=== PATIENT | male | born 2000 | race Caucasian/White ===

== ENCOUNTER 2019-04-02 08:32 | Inpatient (IN) ==
[2019-04-02 09:17] LABS: Hematocrit (blood only) 39.2 % (42-52); Mean Corpuscular Hgb Conc 33.2 g/dL (32-36); Mean Corpuscular Volume 87.5 fL (80-100); Mean Platelet Volume 9.2 fL (7.4-10.4); Platelet Count 151 K/uL (130-400); RDW Standard Deviation 41.7 fL (36.4-46.3); Red Blood Count 4.48 M/uL (4.7-6.1); White Blood Count 13.84 K/uL (4.8-10.8)
[2019-04-02] MEDS ORDERED: SODIUM CHLORIDE 0.9% 1000ML 1,000 ML IV ONE (09:33)
[2019-04-02] MEDS ORDERED: KETOROLAC 30 MG/ML VIAL IV STA (09:33)
[2019-04-02 09:40] LABS: Albumin Level 3.8 gm/dl (3.4-5.0); BUN Creatinine Ratio 17.3 (10-20); Calcium 8.8 mg/dl (8.5-10.1); Creatinine Clr Calc Pharmacy 120.3 ml/min; Est GFR (Non-African American) 115.6; Potassium 4.2 mmol/L (3.5-5.1)
[2019-04-02 09:43] LABS: Albumin Globulin Ratio 1.1 (0.9-2); Bilirubin,Total 0.6 mg/dl (0.2-1); Globulin 3.6 gm/dl (2.5-4.0); Total Protein 7.4 gm/dl (6.4-8.2)
[2019-04-02 09:46] LABS: Basophils # (auto) 0.01 K/uL (0-0.2); Basophils % (auto) 0.1 %; Immature Granulocytes # (auto) 0.06 K/uL (0.00-0.02); Immature Granulocytes % (auto) 0.4 %; Lymphocytes # (auto) 0.82 K/uL (1.2-3.4); Lymphocytes % (auto) 5.9 %; Monocytes # (auto) 1.48 K/uL (0.11-0.59); Monocytes % (auto) 10.7 %; Neutrophils # (auto) 11.47 K/uL (1.4-6.5); Neutrophils % (auto) 82.9 %
--- NOTE | 2019-04-02 09:57 | XRay Report ---
XR chest 1V portable HISTORY: 18 years-old Male cough acute cough with fever COMPARISON: None available TECHNIQUE: Portable AP view of the chest FINDINGS: Minimal ill-defined opacities about the lateral left mid to upper lung. Additional ill-defined opacit ies are noted about the right lung base. Cardiomediastinal and hilar silhouettes are within normal li mits. There is no pneumothorax, pleural effusion or overt pulmonary edema. Bones of the chest appear grossly intact. IMPRESSION: Ill-defined opacities about the lateral left mid to upper lung and right lung base are green spicious for a multifocal pneumonitis. The above report was generated using voice recognition software. It may contain grammatical, syntax o r spelling errors. Electronically signed by: Yovani Bravo M.D. 04/02/2019 9:55 AM
[2019-04-02 10:07] LABS: C Reactive Protein 3.03 mg/dl (0-0.29); Troponin I < 0.015 ng/ml (0-0.045)
[2019-04-02] MEDS ORDERED: cefTRIAXone SODIUM 1,000 MG/50 ML BAG IV STA (10:10)
[2019-04-02 10:25] LABS: Lyme Ab IgM w/WB Rflx Negative (Negative)
[2019-04-02 10:26] LABS: Lyme Ab IgG w/WB Rflx Negative (Negative)
--- NOTE | 2019-04-02 10:27 | Emergency Department Note ---
History of Present Illness General Chief Complaint: Fever Stated Complaint: FEVER,PASSED OUT Source: patient Mode of arrival: ambulatory Limitations: no limitations History of Present Illness Provider Complaint: + loss of consciousness Onset (ago): 2 hour(s) Duration of episode: 2 -: + second(s) Prodromal symptoms: + lightheaded and + diaphoresis Witnessed: + yes - by bystander Context: + standing up Injuries sustained associated with event: + none Current symptoms: + back to baseline and + other (myalgias) History: + previous syncopal episode (8 months ago, unknown cause) Treatments prior to arrival: + none HPI narrative: This 18-year-old male patient presents emergency department today, ambulatory, accompanied by staff from [facility] with complaints of generalized body aches, fatigue, "flash fever", and one syncopal episode which occurred approximately 2 hours prior to arrival. The patient is getting ready to start [facility] and is on a long hiking trip. The patient states 2 weeks ago, he was ill with cough, congestion, chills, nausea, and headache. He began feeling better than on , 5 days ago, he developed worsening cold symptoms including body aches, subjective fevers, cough, fatigue, and mild congestion. The patient states he has been experiencing chills and muscle cramping. He had difficulty sleeping last night. This morning while getting into the van, he had a positive loss of consciousness which lasted for 2 to 3 seconds and was witnessed by bystanders. The patient states "I have muscle inflammation". He states he has had a nonproductive cough for the past few days, but really has had it for about 2 weeks. He does report some upper abdominal discomfort which she rates 1/10. He has some nausea with the loss of consciousness, but this is resolved now. He denies any bug bites or tick bites. He denies any history of Lyme disease. The patient does report low back pain in addition to the other generalized body aches. He has not been taking any medications for his symptoms. He is currently on multiple OTC vitamins and supplements, but no prescription medications. He reports a history 8 months ago of a syncopal episode associated with a "flash fever" which he describes as a subjective fever that lasts for a day then goes away. He states the previous syncopal episode was never worked up and no diagnosis or cause made. Of note, the patient has been taking several OTC supplements for the past several months. Home Medicaitons Home Medications Medication Instructions Recorded Confirmed Type No Known Home Medications 04/02/19 04/02/19 History albuterol sulfate 2 puffs INH Q6H PRN #6.7 gm 04/03/19 Rx levofloxacin 750 mg PO DAILY #3 tab 04/03/19 Rx Allergies Allergy/AdvReac Type Severity Reaction Status Date / Time Penicillins Allergy Rash Unverified 04/02/19 09:50 Past Med/Surg History Medical History No pertinent past medical history Social History Preferred Language: Luxembourgish Communication Ability: Effective Field Clinical Engineer Required: No Beliefs That Will Affect Care: None Current Living Situation: Other Current Living Situation Comment: dorm room alone for now Other Information That Helps Us Care for You: No Feels Safe at Home: Yes Safety Concerns: Feels Safe At This Time Smoking Status: Never smoker Do You Dip or Chew Tobacco: No ; Second Hand Exposure: No ; Tobacco Cessation Education Requested by Patient: No Hx Alcohol Use: No Hx Substance Use: No Review of Systems A total of 10 systems reviewed and were otherwise negative Physical Exam Vital Signs: Vital Signs - 24 hr 04/02/19 08:38 04/02/19 09:51 04/02/19 09:55 Temperature 37.0 C Temperature Source Oral Sepsis Recent Feve r Within 48 Hours No Sepsis Action Take n by Nursing No Action Required Pulse Rate 80 68 70 Pulse Rate from Sp O2 Sensor 67 70 Pulse Rhythm Regular Pulse Strength Normal Respiratory Rate 18 18 18 Respiratory Effort / Characteristics Non-Labored Respiratory Depth Normal Respiratory Patter n Regular Blood Pressure 114/65 109/48 L Blood Pressure Rita n 81 68 Blood Pressure Pos ition Sitting Pulse Oximetry 99 100 100 Oxygen Delivery Me thod Room Air 04/02/19 10:00 04/02/19 10:30 04/02/19 11:00 Temperature Temperature Source Sepsis Recent Feve r Within 48 Hours Sepsis Action Take n by Nursing Pulse Rate 72 72 75 Pulse Rate from Sp O2 Sensor 70 71 73 Pulse Rhythm Pulse Strength Respiratory Rate 14 16 13 Respiratory Effort / Characteristics Respiratory Depth Respiratory Patter n Blood Pressure 119/62 106/71 113/62 Blood Pressure Rita n 81 82 79 Blood Pressure Pos ition Pulse Oximetry 100 97 99 Oxygen Delivery Me thod Physical Exam: VITALS: Vitals are noted on the nurse's note and reviewed by myself. Vital signs stable. GENERAL: This is a 18-year-old white male, in no acute distress, nondiaphoretic, well-developed well-nourished. SKIN: The skin was without rashes, erythema, edema, or bruising. There is no tenting of the skin. Capillary reflex less than 2 seconds. HEAD: Normocephalic atraumatic. EARS: External auditory canals clear, tympanic membranes pearly mcneal without alfonso thema or effusion bilaterally. EYES: Pupils equal round and reactive to light and accommodation. Conjunctivae without injection, sclerae without icterus. Extraocular movements intact. NOSE: Patent, turbinates without inflammation or discharge. No sinus tenderness. MOUTH: Mucous membranes moist. Tonsils are not enlarged. Pharynx without erythema or exudate. Uvula midline. Airway patent. Tongue does not deviate. NECK: Supple without nuchal rigidity. No lymphadenopathy. No thyromegaly. Cervical spine is nontender. No JVD. HEART: Regular rate and rhythm without murmurs gallops or rubs. LUNGS: Crackles noted in the right lung henry. The lungs were otherwise clear to auscultation bilaterally without wheezes, rales or rhonchi. No dullness to percussion. No retractions or accessory muscle use. ABDOMEN: Positive bowel sounds x 4. Normal tympanic percussion. Soft, nontender, without masses or organomegaly. Vargas sign negative. No guarding or rebound tenderness. MUSCULOSKELETAL: No muscle atrophy, erythema, or edema noted. Full range of motion without joint tenderness in all extremities. No tenderness to palpation. Normal gait. Strength 5/5 throughout. NEURO: Patient was alert and oriented to person place and time. Normal sensation to light and sharp touch. Deep tendon reflexes 2+ throughout. No focal neurological deficits. Course The patient was seen and evaluated as above. IV access obtained, labs drawn. Patient hydrated with IV fluids. Imaging performed and reviewed by myself and radiologist as above. Labs reviewed by myself. I discussed the findings with the patient at bedside. I attempted to contact the patient's mother, Theresa, at [phone]. Left message and advised her to call back, but did not receive a phone call back. The patient did get in contact with his mother and spoke with her while here in the department. I discussed the case with the [facility] Hospitalist, Dalia Choe PA-C. She did agree to see and evaluate the patient. The patient was given IV Rocephin and doxy. I discussed the case with my attending. The patient was admitted to the hospitalist service. Please see their dictation regarding ongoing management care of this patient. Administered Medications Discontinued Medications Guaifenesin (Mucinex) 600 mg PO Q12 SHELLY Stop: 05/02/19 20:59 Last Admin: 04/03/19 10:02 Dose: 600 mg Documented by: [id number] Admin: 04/02/19 20:04 Dose: 600 mg Documented by: [id number] Sodium Chloride (Nss 1000ml) 1,000 mls @ 999 mls/hr IV .Q1H1M ONE Stop: 04/02/19 10:33 Last Infusion: 04/02/19 18:00 Dose: 0 mls/hr Documented by: [id number] Admin: 04/02/19 09:58 Dose: 999 mls/hr Documented by: [id number] Ceftriaxone Sodium (Rocephin) 1,000 mg in 50 mls @ 100 mls/hr IV NOW STA Stop: 04/02/19 10:39 Last Infusion: 04/02/19 18:00 Dose: 0 mls/hr Documented by: [id number] Admin: 04/02/19 10:46 Dose: 100 mls/hr Documented by: [id number] Azithromycin 500 mg/ Dextrose 255 mls @ 127.5 mls/hr IV NOW STA Stop: 04/02/19 12:33 Last Admin: 04/03/19 01:08 Dose: Not Given Documented by: [id number] Doxycycline Hyclate 100 mg/ (Dextrose) 110 mls @ 50 mls/hr IV NOW STA Stop: 04/02/19 12:56 Last Infusion: 04/02/19 13:32 Dose: 0 mls/hr Documented by: [id number] Admin: 04/02/19 11:20 Dose: 50 mls/hr Documented by: [id number] Sodium Chloride (Nss 1000ml) 1,000 mls @ 125 mls/hr IV .Q8H SHELLY Stop: 04/03/19 12:08 Last Infusion: 04/03/19 08:25 Dose: 125 mls/hr Documented by: [id number] Infusion: 04/03/19 06:39 Dose: 0 mls/hr Documented by: [id number] Admin: 04/03/19 06:11 Dose: 125 mls/hr Documented by: [id number] Infusion: 04/03/19 06:11 Dose: 125 mls/hr Documented by: [id number] Admin: 04/02/19 22:30 Dose: 125 mls/hr Documented by: [id number] Infusion: 04/02/19 20:09 Dose: 125 mls/hr Documented by: [id number] Admin: 04/02/19 12:09 Dose: 125 mls/hr Documented by: [id number] Sodium Chloride (Nss 1000ml) 1,000 mls @ 999 mls/hr IV .Q1H1M ONE Stop: 04/03/19 07:36 Last Infusion: 04/03/19 07:45 Dose: 0 mls/hr Documented by: [id number] Admin: 04/03/19 06:40 Dose: 999 mls/hr Documented by: [id number] Ketorolac Tromethamine (Toradol) 30 mg IV NOW STA Stop: 04/02/19 09:34 Last Admin: 04/02/19 09:58 Dose: 30 mg Documented by: [id number] Levalbuterol HCl (Xopenex 1.25mg/0.5ml Neb) 1.25 mg NEB Q6H SHELLY Stop: 05/02/19 11:29 Last Admin: 04/02/19 11:39 Dose: 1.25 mg Documented by: [id number] Levalbuterol HCl (Xopenex 1.25mg/0.5ml Neb) 1.25 mg NEB Q6R SHELLY Stop: 05/02/19 18:59 Last Admin: 04/02/19 19:39 Dose: 1.25 mg Documented by: [id number] Levalbuterol HCl (Xopenex 1.25mg/3ml Neb) 1.25 mg INH Q6R SHELLY Stop: 05/02/19 19:59 Last Admin: 04/03/19 07:24 Dose: 1.25 mg Documented by: [id number] Admin: 04/03/19 01:06 Dose: Not Given Documented by: [id number] Admin: 04/02/19 21:38 Dose: Not Given Documented by: [id number] Levofloxacin (Levaquin) 750 mg PO ONE ONE Stop: 04/03/19 11:01 Last Admin: 04/03/19 11:02 Dose: 750 mg Documented by: [id number] Medical Decision Making Differential Diagnosis + syncope due to orthostatic hypotension, + vasovagal event, + complete atrioventricular block, + subarachnoid hemorrhage, + pulmonary embolism, + dehydration, + orthostasis, + POTS, + infection, + hypoglycemia, + electrolyte abnormalities, + dysrhythmias, + ACS, + intracerebral event, + toxicologic, + neurologic and + trauma In addition to the above, etiologies such as pneumonia, COPD, reactive airway disease, CHF, cardiac ischemia, pulmonary embolism, pneumothorax, musculoskeletal, infections, gastrointestinal, as well as others were entertain ed. Home Medications Current Medication List: was personally reviewed by me Laboratory Data Attestation: I reviewed the patient's lab results. Leukocytosis of 13,000 with a shift. Neutrophil count of 11,000. Very mild anemia with hemoglobin of 13 and hematocrit of 39.2. Renal, hepatic function electrolytes without significant abnormality. ESR elevated at 17. CRP elevated at 3.03. Troponin negative. Procalcitonin 2.38. TSH 2.49. Result diagrams: 04/03/19 07:08 04/03/19 07:04 Lab Results 04/02/19 04/02/19 04/02/19 Range/Units 09:05 09:05 09:05 WBC 13.84 H (4.8-10.8) K/uL RBC 4.48 L (4.7-6.1) M/uL Hgb 13.0 L (14.0-18.0) g/dL Hct 39.2 L (42-52) % MCV 87.5 (80-100) fL MCH 29.0 (25-34) pg MCHC 33.2 (32-36) g/dL RDW Std Deviation 41.7 (36.4-46.3) fL RDW Coeff of Afia 13.0 (11.5-14.5) % Plt Count 151 (130-400) K/uL MPV 9.2 (7.4-10.4) fL Immature Gran % (Auto) 0.4 % Neut % (Auto) 82.9 % Lymph % (Auto) 5.9 % Kimball % (Auto) 10.7 % Eos % (Auto) 0.0 % Baso % (Auto) 0.1 % Immature Gran # (Auto) 0.06 H (0.00-0.02) K/uL Neut # (Auto) 11.47 H (1.4-6.5) K/uL Lymph # (Auto) 0.82 L (1.2-3.4) K/uL Kimball # (Auto) 1.48 H (0.11-0.59) K/uL Eos # (Auto) 0.00 (0-0.5) K/uL Baso # (Auto) 0.01 (0-0.2) K/uL ESR (0-14) mm/hr Sodium 137 (136-145) mmol/L Potassium 4.2 (3.5-5.1) mmol/L Chloride 102 (98-107) mmol/L Carbon Dioxide 30 (21-32) mmol/L Anion Gap 5.0 (3-11) BUN 16 (7-18) mg/dl Creatinine 0.95 (0.6-1.4) mg/dl Est Cr Clr Drug Dosing 120.3 ml/min Est GFR ( Amer) 134.0 Est GFR (Non-Af Amer) 115.6 BUN/Creatinine Ratio 17.3 (10-20) Glucose 121 H (70-99) mg/dl Calcium 8.8 (8.5-10.1) mg/dl Total Bilirubin 0.6 (0.2-1) mg/dl AST 31 (15-37) U/L ALT 31 (12-78) U/L Alkaline Phosphatase 106 (45-117) U/L Troponin I (0-0.045) ng/ml C-Reactive Protein (0-0.29) mg/dl Total Protein 7.4 (6.4-8.2) gm/dl Albumin 3.8 (3.4-5.0) gm/dl Globulin 3.6 (2.5-4.0) gm/dl Albumin/Globulin Ratio 1.1 (0.9-2) Procalcitonin (0-0.5) ng/ml TSH (0.300-4.500) uIu/ml Lyme Disease IgG Ab Negative (Negative) Lyme Disease IgM Ab Negative (Negative) Monoscreen Negative (Negative) 04/02/19 04/02/19 04/02/19 Range/Units 09:05 09:05 09:05 WBC (4.8-10.8) K/uL RBC (4.7-6.1) M/uL Hgb (14.0-18.0) g/dL Hct (42-52) % MCV (80-100) fL MCH (25-34) pg MCHC (32-36) g/dL RDW Std Deviation (36.4-46.3) fL RDW Coeff of Afia (11.5-14.5) % Plt Count (130-400) K/uL MPV (7.4-10.4) fL Immature Gran % (Auto) % Neut % (Auto) % Lymph % (Auto) % Kimball % (Auto) % Eos % (Auto) % Baso % (Auto) % Immature Gran # (Auto) (0.00-0.02) K/uL Neut # (Auto) (1.4-6.5) K/uL Lymph # (Auto) (1.2-3.4) K/uL Kimball # (Auto) (0.11-0.59) K/uL Eos # (Auto) (0-0.5) K/uL Baso # (Auto) (0-0.2) K/uL ESR 17 H (0-14) mm/hr Sodium (136-145) mmol/L Potassium (3.5-5.1) mmol/L Chloride (98-107) mmol/L Carbon Dioxide (21-32) mmol/L Anion Gap (3-11) BUN (7-18) mg/dl Creatinine (0.6-1.4) mg/dl Est Cr Clr Drug Dosing ml/min Est GFR ( Amer) Est GFR (Non-Af Amer) BUN/Creatinine Ratio (10-20) Glucose (70-99) mg/dl Calcium (8.5-10.1) mg/dl Total Bilirubin (0.2-1) mg/dl AST (15-37) U/L ALT (12-78) U/L Alkaline Phosphatase (45-117) U/L Troponin I < 0.015 (0-0.045) ng/ml C-Reactive Protein 3.03 H (0-0.29) mg/dl Total Protein (6.4-8.2) gm/dl Albumin (3.4-5.0) gm/dl Globulin (2.5-4.0) gm/dl Albumin/Globulin Ratio (0.9-2) Procalcitonin 2.38 H (0-0.5) ng/ml TSH 2.490 (0.300-4.500) uIu/ml Lyme Disease IgG Ab (Negative) Lyme Disease IgM Ab (Negative) Monoscreen (Negative) Imaging Data Radiologist's Impression: XR chest 1V portable HISTORY: 18 years-old Male cough acute cough with fever COMPARISON: None available TECHNIQUE: Portable AP view of the chest FINDINGS: Minimal ill-defined opacities about the lateral left mid to upper lung. Additional ill-defined opacities are noted about the right lung base. Cardiomediastinal and hilar silhouettes are within normal limits. There is no pneumothorax, pleural effusion or overt pulmonary edema. Bones of the chest appear grossly intact. IMPRESSION: Ill-defined opacities about the lateral left mid to upper lung and right lung base are suspicious for a multifocal pneumonitis. The above report was generated using voice recognition software. It may contain grammatical, syntax or spelling errors. Electronically signed by: Yovani Bravo M.D. 04/02/2019 9:55 AM ECG Data Attestation: I personally reviewed and interpreted this ECG as follows: Indication: syncope Rate (beats per minute): 69 Rhythm: normal sinus Findings: no acute ischemic change and no ectopy Comparison ECG Date: no prior available Blood Pressure Blood Pressure Findings: Normal blood pressure MDM Narrative This 18-year-old male patient presents emergency department today with complaints of generalized body aches, cough, URI symptoms, and one syncopal episode this morning. Work-up here in the ED is consistent with multifocal pneumonia. No obvious etiology of the syncope. The patient does have a leukocytosis. He complains of subjective fevers, but no objective fever noted. He is in town for a backpacking trip for [facility] [employer]. He is a [employer] student. Given the multifocal pneumonia, I do feel that admission for IV antibiotics and hydration as well as evaluation of the syncope is the most appropriate management at this time. The patient did have a syncopal episode several months ago and did not have an obvious etiology at that time. The patient was started on Rocephin and doxy while here in the ED. He will be admitted to the hospitalist service for ongoing management. Please see their dictation regarding ongoing management care of this patient. The chart was completed utilizing [employer] Speech voice recognition software. Grammatical errors, random word insertions, pronoun errors, and incomplete sentences are an occasional consequence of this system due to software limitations, ambient noise, and hardware issues. Any formal questions or concerns about the content, text, or information contained within the body of this dictation should be directly addressed to the provider for clarification. Impression & Plan Multifocal pneumonia, Syncope and collapse, Fever Discharge Plan Visit Data *Final* Discharge Date/Time: 04/02/19 11:58 Chief Complaint: Fever Stated Complaint: FEVER,PASSED OUT ED Provider: Lucius Dewitt ED Midlevel Provider: Angelica Akhtar Discharge Problem: Multifocal pneumonia, Syncope and collapse, Fever Patient Disposition: Admitted As Inpatient Discharge Instructions Interventions: ED Discharge Assessment Last Done: 04/02/19 11:58
[2019-04-02] MEDS ORDERED: AZITHROMYCIN 500 MG in DEXTROSE 5% 250 ML IV STA (10:34)
[2019-04-02] MEDS ORDERED: DOXYCYCLINE HYCLATE 100 MG in DEXTROSE 5% 100 ML IV STA (10:45)
--- NOTE | 2019-04-02 11:11 | History & Physical Report ---
Date of Service April 02, 2019 Assessment & Plan (1) Multifocal pneumonia: (2) Fever: -Admit to [facility] with telemetry -Subjective fever, has not been documented here -White count elevated at 13.84 -Multifocal pneumonia as per CXR which is been reviewed as above -Pulmonary toilet with Mucinex, flutter, Tessalon Cathi, DuoNeb's -Patient is not requiring any supplemental oxygen, however reports being winded with physical exertion -Patient is from home, plans to transition into living in dorms next week at [facility] -Check blood cultures x2, lactate, procalitonin -Follow lymes titre with exposure - unknown if this has been ongoing for prolonged timeframe and is old Lymes -Consider pulm consult with hx of asthma (3) Syncope and collapse: - NSS at 125 x 1 day, encourage PO intake - Check 2D echo - Likely related to pneumonia but will rule out cardiac etiology - consider cardiology consult (4) DVT prophylaxis: - teds Dispo: From home, admit, likely to remain here for 2 days. History of Present Illness Primary Care Provider: [facility] This is a 18 yo M with limited PMHx with intermittent fevers over the past year but multiple exposures to viral illnesses by his family. Pt has a remote history of asthma where he use inhalers and nebulizers. He was on a camping trip with 10 other people for the past 3 days, but due to an episode of sweats, chills, rigors and passing out for a few seconds, he presented to the ER. He has been feeling more worn down, more easily fatigued and reports feeling winded with extensive physical exertion since mid last week. He reports a minor cough, which is nonproductive. Yesterday he hiked approximately 2 miles, as well as the same the day before that. Today he was supposed to hike 10 miles but the events happened prior to this. He reports having "flash fevers" where he developed sweats and chills that week which lasts for about 24 hours then resolved. He has also been using congaplex since getting a cold last . He has not used a thermometer to take his temperature at all. He denies any recent sick contacts, raw or undercooked food consumption. He has drank out of streams on the camping trip but patient reports that they sterilized the water first. No exposures to second hand smoke no alcohol use. Pt was exposed to ticks during this trip but he does not know if he has been bitten by one. He denies any rashes or new areas of injury. Patient reports that he eats a wide variety of fruits and vegetables. Patient also reports that he has been trying to combat acne with various vitamins and supplements. He has taken these routinely for about the last year. Vitamins and supplements include: oshwaganda, reishi, cortysept, zinc, B complex, Vit D. He has also been using congaplex since getting a cold last Will admit for multifocal pneumonia seen on CXR. Allergies Allergy/AdvReac Type Severity Reaction Status Date / Time Penicillins Allergy Rash Unverified 04/02/19 09:50 Home Medications Home Medications Medication Instructions Recorded Confirmed Type No Known Home Medications 04/02/19 04/02/19 History Past Med/Surg History Medical History No pertinent past medical history Social History Preferred Language: Tajik Communication Ability: Effective Chute Boss Required: No Beliefs That Will Affect Care: None Current Living Situation: Other Current Living Situation Comment: dorm room alone for now Other Information That Helps Us Care for You: No Feels Safe at Home: Yes Safety Concerns: Feels Safe At This Time Smoking Status: Never smoker Do You Dip or Chew Tobacco: No ; Second Hand Exposure: No ; Tobacco Cessation Education Requested by Patient: No Hx Alcohol Use: No Hx Substance Use: No Review of Systems Review of Systems: Constitutional: No fever, sweats or chills Eyes: No diplopia, no worsening or blurred vision ENT: normal hearing, no trouble swallowing Respiratory: No cough, sputum, dyspnea at rest or on exertion Cardiovascular: No chest pain, tightness or palpitations Abdomen: No pain, nausea, vomiting, diarrhea or constipation Musculoskeletal: No joint pain, calf pain, swelling Neurologic: No weakness, numbness/tingling, or balance problems Psychiatric: No anxiety or depression Skin: No rash or itch Physical Exam Physical Exam: General: awake, alert, no apparent distress Head: Normocephalic, atraumatic ENT: PERRL, EOMI, no pharyngeal exudate, mucous membranes moist Chest: Clear to auscultation, on room air, no adventitious breath sounds Cardiac: Regular rate and rhythm, no murmur, no JVD, normal peripheral pulses, good capillary refill Abdominal: NABS x 4 quadrants, soft, nontender to palpation, no rebound, guarding or tenderness Extremities: Normal inspection, no peripheral edema or erythema, calfs nontender to palpation Psych: Normal mood and affect Neuro: AAO x 3, strength intact bilaterally and related 5/5, no motor deficits, speech is clear, no peripheral sensory deficits Skin: no rash or erythema Results & Data Vital Signs (Past 12 Hours) Vital Signs Temp Pulse Resp BP Pulse Ox 04/02/19 10:30 72 16 106/71 97 04/02/19 10:00 72 14 119/62 100 04/02/19 09:55 70 18 100 04/02/19 09:51 68 18 109/48 L 100 04/02/19 08:38 37.0 C 80 18 114/65 99 Diagnostic Findings XR chest 1V portable HISTORY: 18 years-old Male cough acute cough with fever COMPARISON: None available TECHNIQUE: Portable AP view of the chest FINDINGS: Minimal ill-defined opacities about the lateral left mid to upper lung. Additional ill-defined opacities are noted about the right lung base. Cardiomediastinal and hilar silhouettes are within normal limits. There is no pneumothorax, pleural effusion or overt pulmonary edema. Bones of the chest appear grossly intact. IMPRESSION: Ill-defined opacities about the lateral left mid to upper lung and right lung base are suspicious for a multifocal pneumonitis. Code Status & VTE Plan Code Status Full code Supervising Physician Co-Signing Physician Notes I supervised Dalia Choe PA-C on this patient's care. I examined the patient today independently of her. I discussed the plan of care with her with the plan being as written in her note except for any following changes/exceptions: None. 18-year-old male with no significant past medical history who presents for multifocal pneumonia. The patient has been feeling somewhat short of breath over the last 2 weeks. Cough really began earlier this week however. He was out camping with some friends, and had a significant subjective fever yesterday evening. This morning he had a small syncopal spell prompting his evaluation in the emergency department. The patient reports that he has had monthly subjective fevers over the course of the last 10 to 12 months; however, he does note multiple family members who have been sick and getting viral illnesses due to attending new schools. We will treat with IV antibiotics and monitor how he is feeling. He may need repeat chest CT in 1 month to ensure resolution of this pneumonia, and to ensure no other underlying process. However the patient denies any other B symptoms such as weight loss, swollen lymph nodes, night sweats, fatigue, or other concerning symptoms. I instructed him to follow-up with his [facility] student health providers after his discharge from the hospital. PG Care Time/CCT Total # of Minutes Spent Total Time Spent with Patient: Total time spent is greater than 50% in coordination of care (as documented) at patient's floor/unit and/or counseling patient:
[2019-04-02] MEDS ORDERED: LEVALBUTEROL 1.25MG/0.5ML NEB NEB SCH ×2 (11:30→19:00)
[2019-04-02] MEDS ORDERED: LEVALBUTEROL 1.25MG/0.5ML NEB ONE (11:35)
[2019-04-02] MEDS ORDERED: ACETAMINOPHEN 325 MG TAB PO PRN (12:09)
[2019-04-02] MEDS: SODIUM CHLORIDE 0.9% 1000ML 1,000 ML IV SCH ×2 (12:09→22:30)
[2019-04-02] MEDS ORDERED: ONDANSETRON INJ 2 MG/ML 2 ML VIAL IV PRN (12:09)
[2019-04-02] MEDS ORDERED: LEVALBUTEROL 1.25MG/0.5ML NEB NEB PRN (12:38)
[2019-04-02 13:29] LABS: Appearance Urine Clear (Clear); Bilirubin Urine Negative (Negative); Blood Urine Negative (Negative); Color Urine Dark Yellow; Glucose Urine UA Negative (Negative); Ketones Urine Negative (Negative); Leukocyte Esterase Urine Negative (Negative); Nitrite Urine Negative (Negative); Protein Urine Negative (Negative); Specific Gravity Urine 1.012 (1.000-1.030); Urobilinogen Urine Negative (Negative); pH Urine 6.5 (4.5-7.5)
[2019-04-02] MEDS ORDERED: LEVALBUTEROL HCL 1.25 MG/3 ML NEB INH PRN (20:00)
[2019-04-02] MEDS: guaiFENesin 600 MG TABCR PO SCH (20:04)
[2019-04-02] MEDS: LEVALBUTEROL HCL 1.25 MG/3 ML NEB INH SCH (21:38)
[2019-04-03] MEDS: LEVALBUTEROL HCL 1.25 MG/3 ML NEB INH SCH ×2 (01:06→07:24)
[2019-04-03] MEDS: SODIUM CHLORIDE 0.9% 1000ML 1,000 ML IV SCH (06:11)
[2019-04-03] MEDS ORDERED: SODIUM CHLORIDE 0.9% 1000ML 1,000 ML IV ONE (06:36)
--- NOTE | 2019-04-03 06:50 | Progress Note ---
Date of Service April 03, 2019 Received a text page at 6:18 AM stating that the patient was bradycardic with heart rate in the 30s and a second-degree AV block. Went to telemetry for immediate review. They stated the patient has been bradycardic between the 30s in the 50s. They also noted a single episode where they caught a skipped beat that is consistent with a type II second-degree AV block. Otherwise patient appears sinus bradycardia on the monitor. A formal electrocardiogram shortly thereafter notes sinus bradycardia rate 41 with a VT interval of 200. Spoke with patient at bedside. He was wide awake, finishing his EKG. He stated that he was completely symptomatic and had no particular concerns. We discussed that his heart rate was dropping quite low. He initially denied any headache, lightheadedness, dizziness, or chest symptoms. However, he says when he sits up quickly he does feel little lightheaded. Vitals as below, including a blood pressure of 91/54. Awake, alert, mentating clearly. Regular bradycardia no murmur on exam. Clear lungs. In brief review of his medical record, patient was admitted for multifocal pneumonia but also had an episode of syncope. His echocardiogram yesterday was rather normal. Plan: - I asked the nurse to bolus the patient 1 L normal saline. - We will transfer the patient to the PCU for closer monitoring. Placed cardiology consult. - Given that he is currently grossly asymptomatic at rest, no other acute medications given. - Will keep a dose of atropine at his bedside. If he becomes more hypotensive, consideration of a dopamine drip. Discussed all the above in real-time with Dr. Russo. Arnold Cates, PGY3 Overnight call Results & Data Vital Signs (Past 12 Hours) Vital Signs Temp Pulse Pulse Resp BP Pulse Ox 04/03/19 06:27 36.5 C 44 L 18 91/54 L 97 04/03/19 03:49 36.5 C 51 L 18 100/61 98 04/02/19 23:30 67 04/02/19 22:53 36.7 C 60 20 99/62 L 95 04/02/19 19:39 65 16 96 04/02/19 19:08 36.5 C 64 18 97/56 L 99
[2019-04-03] MEDS ORDERED: ATROPINE SULFATE 0.1 MG/ML 10ML SYR IV ONE (07:28)
[2019-04-03 07:42] LABS: Basophils # (auto) 0.01 K/uL (0-0.2); Basophils % (auto) 0.2 %; Eosinophils # (auto) 0.03 K/uL (0-0.5); Eosinophils % (auto) 0.5 %; Hematocrit (blood only) 33.3 % (42-52); Immature Granulocytes # (auto) 0.01 K/uL (0.00-0.02); Immature Granulocytes % (auto) 0.2 %; Lymphocytes # (auto) 1.28 K/uL (1.2-3.4); Lymphocytes % (auto) 19.9 %; Mean Corpuscular Volume 88.3 fL (80-100); Mean Platelet Volume 9.4 fL (7.4-10.4); Monocytes % (auto) 9.3 %; Neutrophils # (auto) 4.49 K/uL (1.4-6.5); Neutrophils % (auto) 69.9 %; Platelet Count 137 K/uL (130-400); RDW Coefficient of Variation 13.3 % (11.5-14.5); RDW Standard Deviation 43.5 fL (36.4-46.3); Red Blood Count 3.77 M/uL (4.7-6.1); White Blood Count 6.42 K/uL (4.8-10.8)
[2019-04-03 08:16] LABS: BUN Creatinine Ratio 18.7 (10-20); Blood Urea Nitrogen 13 mg/dl (7-18); Calcium 7.9 mg/dl (8.5-10.1); Carbon Dioxide 27 mmol/L (21-32); Chloride 113 mmol/L (98-107); Creatinine Clr Calc Pharmacy 168.3 ml/min; Est GFR (African American) > 150.0; Est GFR (Non-African American) 137.6; Glucose 102 mg/dl (70-99); Magnesium 2.1 mg/dl (1.8-2.4); Potassium 4.1 mmol/L (3.5-5.1); Sodium 143 mmol/L (136-145)
--- NOTE | 2019-04-03 09:53 | Cardiology Consultation ---
Date of Consultation April 03, 2019 Assessment & Plan (1) Syncope and collapse: (2) Fever: (3) Multifocal pneumonia: Patient is a healthy 18 year old male admitted with fevers felt to be secondary to pneumonia. Also had a brief episode of syncope. One other prior episode of syncope in August and by his description both sound consistent with vasovagal syncope. Review of telemetry shows sinus bradycardia and one episode of Wenckebach early this morning. The patient was asymptomatic. In a healthy young adult this is can be associated with increased vagal tone. Echo is normal. Lyme studies were negative but patient was recently exposed to ticks and may be too soon for antibodies to be positive. Would strongly consider treating patient with a course of oral Doxycycline. History of Present Illness Attending Physician: Thony Obando MD History of Present Illness Patient is a 18 year old healthy male who was admitted yesterday with fever and syncopal episode. He is being in the setting of possible heart block. He denies any chronic medical conditions, specifically has no cardiac history. He is a freshman at [employer] and this week was hiking and camping with friends. Over the past 1-2 weeks he has felt ill with intermittent fevers, chills, myalgias and cough. Two nights ago reports having a "flash fever." The next morning while being checked on by winter sports manager he had a brief loss of consciousness lasting a few seconds. Prior to he experienced nausea, a "suffocating" feeling and clamminess. No palpitations or chest pain. Reports one similar episode in August also in the setting of a fever. Upon admission his WBC was elevated and he has evidence of multifocal pneumonia on chest xray. He denies any tick bites but reports seeing numerous ticks while hiking. No rash. Lyme studies negative. He has been given IV antibiotics. Echocardiogram with normal LV size, function and no significant valvular pathology. Early this morning patient's heart rate briefly dropped into the 30s. Review of telemetry shows one episode of Wenckebach. He was completely asymptomatic at the time. He is currently feeling well and is anxious to be discharged. No further episodes of near syncope or syncope. No chest pain, shortness of breath, orthopnea or PND. No palpitations. No abnormal bleeding. Allergies Allergy/AdvReac Type Severity Reaction Status Date / Time Penicillins Allergy Rash Unverified 04/02/19 09:50 Home Medications Home Medications Medication Instructions Recorded Confirmed Type No Known Home Medications 04/02/19 04/02/19 History Patient History Medical History No pertinent past medical history Social History Preferred Language: Turkmen Communication Ability: Effective Curtain Roller Assembler Required: No Beliefs That Will Affect Care: None Current Living Situation: Other Current Living Situation Comment: dorm room alone for now Other Information That Helps Us Care for You: No Feels Safe at Home: Yes Safety Concerns: Feels Safe At This Time Smoking Status: Never smoker Do You Dip or Chew Tobacco: No ; Second Hand Exposure: No ; Tobacco Cessation Education Requested by Patient: No Hx Alcohol Use: No Hx Substance Use: No Review of Systems Review of Systems: All systems reviewed & are unremarkable except as noted in HPI & below Physical Exam Physical Exam: General: No acute distress, comfortable. HEENT: Head is normal. PERRLA. EOMI. Sclerae anicteric. Ears, nose and throat unremarkable. Mucous membranes moist. Neck: Normal carotid upstrokes, no bruits. No appreciable JVD. Lungs: Clear to auscultation bilaterally without rales, rhonchi or wheezes. Cardiac: Regular rate and rhythm. S1-S2 normal. No appreciable murmur, gallop or rub. Abdomen: Soft and nontender. Bowel sounds normal. No mass or organomegaly. No abdominal bruit. Extremities/vascular: Well perfused. No peripheral edema. Radial, DP and PT pulses 2+ bilaterally Skin: No rash or abnormal lesions. Normal turgor. Neurologic: Nonfocal Psychiatric: Affect appropriate. Alert and oriented. Results & Data Vital Signs (Past 12 Hours) Vital Signs Temp Pulse Pulse Resp BP Pulse Ox 04/03/19 07:43 36.4 C L 53 L 18 100/63 100 04/03/19 07:26 45 L 18 92 04/03/19 06:27 36.5 C 44 L 18 91/54 L 97 04/03/19 03:49 36.5 C 51 L 18 100/61 98 04/02/19 23:30 67 04/02/19 22:53 36.7 C 60 20 99/62 L 95 Laboratory Results Laboratory Results - last 24 hr 08/04/02/19 04/02/19 09:05 09:05 09:05 WBC RBC Hgb Hct MCV MCH MCHC RDW Std Deviation RDW Coeff of Afia Plt Count MPV Immature Gran % (Auto) 0.4 Neut % (Auto) 82.9 Lymph % (Auto) 5.9 Andrew % (Auto) 10.7 Eos % (Auto) 0.0 Baso % (Auto) 0.1 Immature Gran # (Auto) 0.06 H Neut # (Auto) 11.47 H Lymph # (Auto) 0.82 L Andrew # (Auto) 1.48 H Eos # (Auto) 0.00 Baso # (Auto) 0.01 ESR 17 H Sodium Potassium Chloride Carbon Dioxide Anion Gap BUN Creatinine Est Cr Clr Drug Dosing Est GFR ( Amer) Est GFR (Non-Af Amer) BUN/Creatinine Ratio Glucose Lactate Calcium Magnesium Troponin I C-Reactive Protein Procalcitonin TSH Urine Color Urine Appearance Urine pH Ur Specific Clay Urine Protein Urine Glucose (UA) Urine Ketones Urine Blood Urine Nitrite Urine Bilirubin Urine Urobilinogen Ur Leukocyte Esterase Anaplasma Smear A. phagocytophilum DNA Lyme Disease IgG Ab Negative Lyme Disease IgM Ab Negative Monoscreen Negative 04/02/19 04/02/19 04/02/19 09:05 09:05 12:44 WBC RBC Hgb Hct MCV MCH MCHC RDW Std Deviation RDW Coeff of Afia Plt Count MPV Immature Gran % (Auto) Neut % (Auto) Lymph % (Auto) Andrew % (Auto) Eos % (Auto) Baso % (Auto) Immature Gran # (Auto) Neut # (Auto) Lymph # (Auto) Andrew # (Auto) Eos # (Auto) Baso # (Auto) ESR Sodium Potassium Chloride Carbon Dioxide Anion Gap BUN Creatinine Est Cr Clr Drug Dosing Est GFR ( Amer) Est GFR (Non-Af Amer) BUN/Creatinine Ratio Glucose Lactate Calcium Magnesium Troponin I < 0.015 C-Reactive Protein 3.03 H Procalcitonin 2.38 H TSH 2.490 Urine Color Urine Appearance Urine pH Ur Specific Clay Urine Protein Urine Glucose (UA) Urine Ketones Urine Blood Urine Nitrite Urine Bilirubin Urine Urobilinogen Ur Leukocyte Esterase Anaplasma Smear See Comment A. phagocytophilum DNA Lyme Disease IgG Ab Lyme Disease IgM Ab Monoscreen 04/02/19 04/02/19 04/02/19 12:44 12:45 12:55 WBC RBC Hgb Hct MCV MCH MCHC RDW Std Deviation RDW Coeff of Afia Plt Count MPV Immature Gran % (Auto) Neut % (Auto) Lymph % (Auto) Andrew % (Auto) Eos % (Auto) Baso % (Auto) Immature Gran # (Auto) Neut # (Auto) Lymph # (Auto) Andrew # (Auto) Eos # (Auto) Baso # (Auto) ESR Sodium Potassium Chloride Carbon Dioxide Anion Gap BUN Creatinine Est Cr Clr Drug Dosing Est GFR ( Amer) Est GFR (Non-Af Amer) BUN/Creatinine Ratio Glucose Lactate 1.4 Calcium Magnesium Troponin I C-Reactive Protein Procalcitonin TSH Urine Color Dark Yellow Urine Appearance Clear Urine pH 6.5 Ur Specific Clay 1.012 Urine Protein Negative Urine Glucose (UA) Negative Urine Ketones Negative Urine Blood Negative Urine Nitrite Negative Urine Bilirubin Negative Urine Urobilinogen Negative Ur Leukocyte Esterase Negative Anaplasma Smear A. phagocytophilum DNA Pending Lyme Disease IgG Ab Lyme Disease IgM Ab Monoscreen 04/03/19 04/03/19 07:04 07:08 WBC 6.42 RBC 3.77 L Hgb 11.0 L Hct 33.3 L MCV 88.3 MCH 29.2 MCHC 33.0 RDW Std Deviation 43.5 RDW Coeff of Aifa 13.3 Plt Count 137 MPV 9.4 Immature Gran % (Auto) 0.2 Neut % (Auto) 69.9 Lymph % (Auto) 19.9 Andrew % (Auto) 9.3 Eos % (Auto) 0.5 Baso % (Auto) 0.2 Immature Gran # (Auto) 0.01 Neut # (Auto) 4.49 Lymph # (Auto) 1.28 Andrew # (Auto) 0.60 H Eos # (Auto) 0.03 Baso # (Auto) 0.01 ESR Sodium 143 Potassium 4.1 Chloride 113 H Carbon Dioxide 27 Anion Gap 3.0 BUN 13 Creatinine 0.69 Est Cr Clr Drug Dosing 168.3 Est GFR ( Amer) > 150.0 Est GFR (Non-Af Amer) 137.6 BUN/Creatinine Ratio 18.7 Glucose 102 H Lactate Calcium 7.9 L Magnesium 2.1 Troponin I C-Reactive Protein Procalcitonin TSH Urine Color Urine Appearance Urine pH Ur Specific Clay Urine Protein Urine Glucose (UA) Urine Ketones Urine Blood Urine Nitrite Urine Bilirubin Urine Urobilinogen Ur Leukocyte Esterase Anaplasma Smear A. phagocytophilum DNA Lyme Disease IgG Ab Lyme Disease IgM Ab Monoscreen Diagnostic Findings Echo- Normal LV size and function. EF 60-65%. No wall motion abnormalities. No significant valvular pathology. ECG Additional Comments: EKGs reviewed- Sinus bradycardia Telemetry reviewed- Sinus rhythm and sinus bradycardia. One episode of type 1 second degree AV block PG Care Time/CCT Total # of Minutes Spent Total Time Spent with Patient: Total time spent is greater than 50% in coordination of care (as documented) at patient's floor/unit and/or counseling patient: (1) Fever Fever type: unspecified Qualified Code(s): R50.9 - Fever, unspecified
[2019-04-03] MEDS: guaiFENesin 600 MG TABCR PO SCH (10:02)
[2019-04-03] MEDS ORDERED: levoFLOXacin 750 MG TAB PO ONE (11:00)
--- NOTE | 2019-04-03 15:34 | Discharge Summary ---
Date of Service April 03, 2019 Admission HPI Per Admitting Provider This is a 18 yo M with limited PMHx with intermittent fevers over the past year but multiple exposures to viral illnesses by his family. Pt has a remote history of asthma where he use inhalers and nebulizers. He was on a camping trip with 10 other people for the past 3 days, but due to an episode of sweats, chills, rigors and passing out for a few seconds, he presented to the ER. He has been feeling more worn down, more easily fatigued and reports feeling winded with extensive physical exertion since mid last week. He reports a minor cough, which is nonproductive. Yesterday he hiked approximately 2 miles, as well as the same the day before that. Today he was supposed to hike 10 miles but the events happened prior to this. He reports having "flash fevers" where he developed sweats and chills that week which lasts for about 24 hours then resolved. He has also been using congaplex since getting a cold last . He has not used a thermometer to take his temperature at all. He denies any recent sick contacts, raw or undercooked food consumption. He has drank out of streams on the camping trip but patient reports that they sterilized the water first. No exposures to second hand smoke no alcohol use. Pt was exposed to ticks during this trip but he does not know if he has been bitten by one. He denies any rashes or new areas of injury. Patient reports that he eats a wide variety of fruits and vegetables. Patient also reports that he has been trying to combat acne with various vitamins and supplements. He has taken these routinely for about the last year. Vitamins and supplements include: oshwaganda, reishi, cortysept, zinc, B complex, Vit D. He has also been using congaplex since getting a cold last Will admit for multifocal pneumonia seen on CXR. Principal Diagnosis Multifocal pneumonia Discharge Exam Constitutional WD/WN, vitals as above Eyes EOM intact bilaterally; no conjunctival abnormality ENMT external ear and nose normal, oropharynx normal Neck trachea midline, no thyromegaly normal visual inspection Respiratory normal respiratory effort, lungs clear to auscultation no respiratory distress Cardiovascular RRR, no murmur, no edema Gastrointestinal (Abdomen) Inspection/Auscultation: abdomen normal to inspection; abdomen not distended Musculoskeletal no cyanosis or clubbing, extremities motor strength 5/5 Skin no rashes, warm and dry Neurologic moves all extremities and awake Psychiatric Orientation: alert, oriented to person and cooperative Discharge Data Allergies Allergy/AdvReac Type Severity Reaction Status Date / Time Penicillins Allergy Rash Unverified 04/02/19 09:50 Consultations 04/02/19 10:45 ED Decision to Admit Stat 04/02/19 12:09 Consult Case Management - Discharge Planning Routine 04/03/19 07:28 Consult Cardiology Routine Hospital Course (1) Multifocal pneumonia: Multifocal pneumonia per CXR. - Treated with ceftriaxone/doxy for his pneumonia and a concern for Lyme (had been exposed to ticks while camping.) - Switched to levofloxacin on discharge for a 5-day course total. Lyme had been ruled out given negative titer. - Given an albuterol inhaler. If he needs it for more than a week after his pneumonia, he should follow up with [facility] to be tested for asthma. (2) Syncope and collapse: Likely due to vasovagal from his pneumonia. - Echo on 04/02 was normal. EF 60-65%, no valvular issues. - No concerns on discharge. No lightheadedness or dizziness. Total Time Total Time Spent Total Time Spent (In Minutes): 35 Discharge Plan Discharge Items Patient Disposition: Home - Self-Care Reason For Visit: MULTIFOCAL PNA Discharge Diagnosis: Pneumonia Discharge Goals: Decrease discomfort, Prevent disease and Therapeutic intervention Activity: Resume your previous activity Exercise/Sports: As tolerated Non-emergency contact: Primary Care Provider Call non-emergency contact if: your symptoms worsen and your temperature is above 101 Follow-up/Referrals: David Cruz [Outside Practitioners] - 04/07/19 2:40 pm (Please, follow up at [facility] with Dr. David Cruz on SundayApril 07 at 2:40 pm. *If you need to change this appointment, call the office at [phone].) [facility] [Primary Care Provider] - Diet: Regular Addtl Provider Instructions: Mr. Matias, You were admitted to the hospital for a pneumonia. Please take your antibiotic for 3 more days (one time per day), with the first dose starting tomorrow morning. If you have any issues with shortness of breath or cough, please follow up with [facility]. We are also giving you an inhaler. If you need to use this for more than another few days, please follow up with [facility] for testing for possible asthma. Prescriptions: New levofloxacin 750 mg tablet 750 mg PO DAILY Qty: 3 RF: 0 albuterol sulfate 90 mcg/actuation HFA aerosol inhaler 2 puffs INH Q6H PRN (Reason: shortness of breath or wheezing) Qty: 6.7 RF: 0 No Action No Known Home Medications RF: 0 Stand-Alone Forms: [facility] Discharge Orders: Discharge Order (Routine); Ordered 04/03/19 Ordered By: Thony Obando Admission Data Admit Date/Time: 04/02/19 11:22 Attending Provider: Thony Obando Admit Provider: Thony Obando Primary Care Provider: [facility] Other Providers: Thony Obando ; Sal Ellington Service: Telemetry Other Interventions: Discharge Summary Assessment (RN) Last Done: 04/03/19 11:12 DC Date/Time DO NOT enter until pt leaves facility: 04/03/19 11:20
== END 2019-04-03 11:20 | disposition home or self-care (01) | DRG 195 ==
LOC: ED 08:32 → 2N 11:22 → 2S 04-03 07:24
DX: J18.9 Pneumonia, unspecified organism; I44.1 Atrioventricular block, second degree; R55 Syncope and collapse